=== PATIENT | male | born 1940 | race Caucasian/White ===

== ENCOUNTER → 2020-01-22 09:23 | Outpatient (BNVA) | payer MEDICARE, SELFPAY | PROVIDERS: PCP Internal Medicine Interventional Cardiology; Referring Provider Internal Medicine Interventional Cardiology; Visit Provider Internal Medicine Cardiovascular Disease | DX: I48.92 Unspecified atrial flutter (principal) | CPT/HCPCS: 99212 ==

== ENCOUNTER → 2021-01-31 10:10 | Outpatient (BNVA) | payer MEDICARE, SELFPAY | PROVIDERS: PCP Internal Medicine Interventional Cardiology; Visit Provider Internal Medicine Cardiovascular Disease | DX: I48.92 Unspecified atrial flutter (principal) | CPT/HCPCS: 93005; 99212 ==

== ENCOUNTER 2021-06-20 14:06 | Outpatient (REF) | payer MEDICARE, SELFPAY ==
[2021-06-20 14:43] LABS: COVID-19 Test Positive (Negative); IDNOW Serial# 16C4AD1C
== END 2021-06-20 14:07 | disposition home or self-care (01) ==
LOC: HO.LAB 14:06
PROVIDERS: Visit Provider Internal Medicine
DX: Z20.822 Contact with and (suspected) exposure to COVID-19 (principal)
CPT/HCPCS: 87635; C9803

== ENCOUNTER → 2022-01-30 09:07 | Outpatient (BNVA) | payer MEDICARE, SELFPAY | PROVIDERS: PCP Internal Medicine; Visit Provider Internal Medicine Cardiovascular Disease | DX: I48.92 Unspecified atrial flutter (principal); Z79.01 Long term (current) use of anticoagulants | CPT/HCPCS: 93005; 99212 ==

== ENCOUNTER 2022-03-28 13:30 | Emergency (ER) | payer OTHER, MEDICARE, SELFPAY ==
--- NOTE | ~2022-03-28 | XR_ITS ---
EXAMINATION: XR CHEST CLINICAL INFORMATION: Shortness of breath. COMPARISON: 11/25/2017 chest radiograph. TECHNIQUE: 2 views of the chest were obtained. FINDINGS: The lungs are clear. There are no pleural effusions. The heart and mediastinal structures are unremarkable. A pectus excavatum deformity is noted. XR/XR chest 2V IMPRESSION: No acute cardiopulmonary process.
--- NOTE | 2022-03-28 13:53 | ED_ITS ---
HPI - URI/Sore Throat General Chief Complaint: Upper Respiratory Symptoms Stated Complaint: cough chest discomfort ear pain Time Seen by Provider: 03/28/22 15:24 Related Data Home Medications Medication Instructions Recorded Confirmed coenzyme Q10 10 mg capsule (Co 10 mg PO DAILY 01/31/21 01/31/21 Q-10) mecobalamin (vitamin B12) 5,000 5,000 mcg PO DAILY 01/31/21 01/31/21 mcg lozenge Previous Rx's Medication Instructions Recorded apixaban 5 mg tablet (Eliquis) 5 mg PO BID 90 days #180 tabs 02/03/21 amoxicillin 875 mg-potassium 1 tab PO BID #14 tabs 03/28/22 clavulanate 125 mg tablet benzonatate 200 mg capsule 200 mg PO TID PRN cough #20 caps 03/28/22 Allergies Allergy/AdvReac Type Severity Reaction Status Date / Time Doxicillian Allergy Unknown unknown Uncoded 01/30/22 09:09 [facility] Past Medical History Surgical History History of adenoidectomy History of knee replacement History of tonsillectomy Hx of appendectomy Family History Family History Father No problems noted. Mother No problems noted. Social History Social History Alcohol intake: current Alcohol intake frequency: 0-2 drinks per day Patient Tobacco Use Status: Former Tobacco user Quit Date: 1971 Years Smoked: 10 +/- Advance Directives: No Physical Exam Vital Signs: Vital Signs: Last Vital Signs Temp 97.7 F 03/28/22 13:54 Pulse 74 03/28/22 13:54 Resp 18 03/28/22 13:54 BP 165/94 H 03/28/22 13:54 Pulse Ox 95 03/28/22 13:54 O2 Del Method 03/28/22 13:54 BMI result Body Mass Index 22.4 Course Course Course Narrative: This is an RME: Additional HPI, ROS, PE not included below will be deferred to primary provider. Patient is an 82-year-old male presenting to emergency department for evaluation of upper respiratory symptoms. Symptom onset 2 weeks ago. Productive cough, shortness of breath with exertion, chest discomfort associated with cough/ deep respiration, L ear pain and blocked sensation, also with diarrhea, decreased appetitie, states he is drinking 8 oz water hourly (as advised by daughter), thus urinary frequency. Denies fevers, chills, nausea, vomiting. Has tested for COVID at home, negative. [facility] and ad vised to come to ED for CXR. Plan: labs, viral testing, CXR Medical Decision Making Lab Data 03/28/22 14:26 03/28/22 14:26 Labs: Lab Results 03/28/22 03/28/22 03/28/22 Range/Units 14:21 14:26 14:26 WBC (4.8-10.8) X10*3/uL RBC (4.60-5.80) X10*6/uL Hgb (14.0-18.0) g/dl Hct (42.0-52.0) % MCV (80.0-98.0) fL MCH (27.0-33.0) pg MCHC (31.0-36.0) g/dl RDW (11.0-16.0) % Plt Count (160-400) X10*3/uL MPV (9.4-12.4) fL Immature Gran % (Auto) (0.0-0.4) % Neut % (Auto) (45-73) % Lymph % (Auto) (20-40) % [place] % (Auto) (2-11) % Eos % (Auto) (0-4) % Baso % (Auto) (0-2) % Lymph # (Auto) (1.2-4.9) X10*3/uL [place] # (Auto) (0.1-1.2) X10*3/uL Eos # (Auto) (0.0-0.4) X10*3/uL Baso # (Auto) (0.0-0.2) X10*3/uL Abs Immat Gran (auto) (0.00-0.03) X10*3/uL Absolute Neuts (auto) (2.0-8.3) x10*3/uL Absolute Nucleated RBC (0.0-0.012) X10*3/uL Nucleated RBC % (auto) (0.0-0.2) /100WBC Sodium (135-145) mmol/L Potassium (3.3-5.1) mmol/L Chloride (96-108) mmol/L Carbon Dioxide (22-29) mmol/L Anion Gap (12-20) BUN (9-16) mg/dL Creatinine (0.5-1.4) mg/dL Estim Creat Clear Calc Estimated GFR Random Glucose (60-115) mg/dL Calcium (8.4-10.2) mg/dL Total Bilirubin (0.0-1.0) mg/dL AST (5-37) U/L ALT (0-40) U/L Alkaline Phosphatase (39-117) U/L Troponin I High Sens (<3.5-35.0) ng/L Total Protein (6.5-8.0) g/dL Albumin (3.5-5.0) g/dL Lipase (8-78) U/L Urine Color Yellow Urine Appearance Cloudy Urine pH 6.5 (5.0-9.0) Ur Specific [place] <= 1.005 (1.005-1.025) Urine Protein Negative (Neg-Trace) mg/dL Urine Glucose (UA) Negative (Negative) mg/dL Urine Ketones Negative (Negative) mg/dL Urine Blood Trace H (Negative) Urine Nitrite Negative (Negative) Ur Leukocyte Esterase Large (3+) H (Negative) Urine RBC 0-2 (0-2) /HPF Urine WBC >50 H (0-5) /HPF Ur Squamous Epith Cells 0-2 (0-2) /HPF Urine Bacteria 1+ (None Seen) Hyaline Casts 0-2 (0-2) /LPF COVID-19 (DAGOBERTO) Negative (Negative) COVID-19 Clin Com See Note Influenza Type A (JOE) Negative (Negative) Influenza Type B (JOE) Negative (Negative) Influenza A & B Note See Note 03/28/22 03/28/22 03/28/22 Range/Units 14:26 14:26 14:26 WBC 10.5 (4.8-10.8) X10*3/uL RBC 4.42 L (4.60-5.80) X10*6/uL Hgb 15.2 (14.0-18.0) g/dl Hct 42.7 (42.0-52.0) % MCV 96.6 (80.0-98.0) fL MCH 34.4 H (27.0-33.0) pg MCHC 35.6 (31.0-36.0) g/dl RDW 12.8 (11.0-16.0) % Plt Count 294 (160-400) X10*3/uL MPV 8.7 L (9.4-12.4) fL Immature Gran % (Auto) 0.7 H (0.0-0.4) % Neut % (Auto) 82.3 H (45-73) % Lymph % (Auto) 8.4 L (20-40) % [place] % (Auto) 8.1 (2-11) % Eos % (Auto) 0.2 (0-4) % Baso % (Auto) 0.3 (0-2) % Lymph # (Auto) 0.9 L (1.2-4.9) X10*3/uL [place] # (Auto) 0.9 (0.1-1.2) X10*3/uL Eos # (Auto) 0.0 (0.0-0.4) X10*3/uL Baso # (Auto) 0.0 (0.0-0.2) X10*3/uL Abs Immat Gran (auto) 0.07 H (0.00-0.03) X10*3/uL Absolute Neuts (auto) 8.6 H (2.0-8.3) x10*3/uL Absolute Nucleated RBC 0.000 (0.0-0.012) X10*3/uL Nucleated RBC % (auto) 0.0 (0.0-0.2) /100WBC Sodium 135 (135-145) mmol/L Potassium 4.1 (3.3-5.1) mmol/L Chloride 101 (96-108) mmol/L Carbon Dioxide 24 (22-29) mmol/L Anion Gap 14 (12-20) BUN 6 L (9-16) mg/dL Creatinine 0.70 (0.5-1.4) mg/dL Estim Creat Clear Calc 85.6 Estimated GFR > 60 Random Glucose 109 (60-115) mg/dL Calcium 9.2 (8.4-10.2) mg/dL Total Bilirubin 1.2 H (0.0-1.0) mg/dL AST 29 (5-37) U/L ALT 25 (0-40) U/L Alkaline Phosphatase 77 (39-117) U/L Troponin I High Sens 4.9 (<3.5-35.0) ng/L Total Protein 6.5 (6.5-8.0) g/dL Albumin 4.2 (3.5-5.0) g/dL Lipase 18 (8-78) U/L Urine Color Urine Appearance Urine pH (5.0-9.0) Ur Specific [place] (1.005-1.025) Urine Protein (Neg-Trace) mg/dL Urine Glucose (UA) (Negative) mg/dL Urine Ketones (Negative) mg/dL Urine Blood (Negative) Urine Nitrite (Negative) Ur Leukocyte Esterase (Negative) Urine RBC (0-2) /HPF Urine WBC (0-5) /HPF Ur Squamous Epith Cells (0-2) /HPF Urine Bacteria (None Seen) Hyaline Casts (0-2) /LPF COVID-19 (DAGOBERTO) (Negative) COVID-19 Clin Com Influenza Type A (JOE) (Negative) Influenza Type B (JOE) (Negative) Influenza A & B Note Discharge Plan Discharge Clinical Impression: Acute UTI (urinary tract infection), URI (upper respiratory infection) Patient Disposition: Home, Self-Care Additional Instructions: Take Augmentin twice daily for the next 7 days. This will cover, sinus, as well as urine bacteria You may use Benzonatate as needed for cough Prescriptions: New amoxicillin-pot clavulanate 875-125 mg tablet 1 tab PO BID Qty: 14 0RF benzonatate 200 mg capsule 200 mg PO TID PRN (Reason: cough) Qty: 20 0RF No Action Eliquis 5 mg tablet 5 mg PO BID 90 Days Qty: 180 3RF coenzyme Q10 [Co Q-10] 10 mg capsule 10 mg PO DAILY mecobalamin (vitamin B12) 5,000 mcg lozenge 5,000 mcg PO DAILY Rx Instructions: allow to dissolve in mouth OR may chew lightly before swallowing Interventions: ED Discharge Assessment Last Done: 03/28/22 16:03 Discharge Date/Time: 03/28/22 16:03
[2022-03-28 13:54] VITALS: BP 165/94; PULSE 74; RESP 18; TEMP 36.5; O2SAT 95; BMI 22.4
--- NOTE | 2022-03-28 14:00 | ECG_ITS ---
Test Reason : chest pain Blood Pressure : / mmHG Vent. Rate : 065 BPM Atrial Rate : 065 BPM P-R Int : 206 ms QRS Dur : 098 ms QT Int : 392 ms P-R-T Axes : 000 -73 054 degrees QTc Int : 407 ms Poor data quality Normal sinus rhythm with sinus arrhythmia Incomplete right bundle branch block Left anterior fascicular block Nonspecific ST and T wave abnormality Abnormal ECG When compared with ECG of 29-NOV-2017 09:29, Sinus rhythm has replaced Atrial fibrillation Referred By: Bety Barrientos Electronically Signed By:DIXIE ANGELES MD
[2022-03-28 14:30] LABS: MANUAL DIFF FLAG NO
[2022-03-28 14:33] LABS: Appearance Urine Cloudy; Color Urine Yellow; Glucose Urine UA Negative (Negative); Leukocyte Esterase Urine Large (3+) (Negative); Nitrite Urine Negative (Negative); PH 6.5 (5.0-9.0); Specific Gravity - Urine <= 1.005 (1.005-1.025); UMIC TRIGGER UACC YES; Urine Blood Trace (Negative); Urine Ketones Negative (Negative); Urine Protein Negative (Neg-Trace)
[2022-03-28 14:38] LABS: Bacteria Urine 1+ (None Seen); Hyaline Casts Urine 0-2 /LPF (0-2); RBC Urine 0-2 /HPF (0-2); Squamous Epithelial Cell Urine 0-2 /HPF (0-2); UACC Culture Trigger YES; WBC Urine >50 /HPF (0-5)
[2022-03-28 14:39] LABS: Basophils Percent Auto 0.3 % (0-2); Eosinophils Percent Auto 0.2 % (0-4); Hematocrit 42.7 % (42.0-52.0); Hemoglobin 15.2 g/dl (14.0-18.0); Imm Gran Abs Auto 0.07 X10*3/uL (0.00-0.03); Imm Gran Pct Auto 0.7 % (0.0-0.4); Lymphocytes Absolute Auto 0.9 X10*3/uL (1.2-4.9); Lymphocytes Percent Auto 8.4 % (20-40); Mean Corpuscular HGB Conc 35.6 g/dl (31.0-36.0); Mean Corpuscular Hemoglobin 34.4 pg (27.0-33.0); Mean Corpuscular Volume 96.6 fL (80.0-98.0); Mean Platelet Volume 8.7 fL (9.4-12.4); Monocytes Absolute Auto 0.9 X10*3/uL (0.1-1.2); Monocytes Percent Auto 8.1 % (2-11); Neutrophils Absolute Auto 8.6 x10*3/uL (2.0-8.3); Neutrophils Percent Auto 82.3 % (45-73); Platelet Count 294 X10*3/uL (160-400); Red Blood Count 4.42 X10*6/uL (4.60-5.80); Red Cell Distribution Width 12.8 % (11.0-16.0); White Blood Count 10.5 X10*3/uL (4.8-10.8)
[2022-03-28 14:46] LABS: COVID-19 Test Negative (Negative); IDNOW Serial# 16C4AD1C
[2022-03-28 14:47] LABS: Alanine Aminotransferase 25 U/L (0-40); Albumin Level 4.2 g/dL (3.5-5.0); Alkaline Phosphatase 77 U/L (39-117); Anion Gap 14 (12-20); Aspartate Amino Transferase 29 U/L (5-37); Bilirubin Total 1.2 mg/dL (0.0-1.0); Blood Urea Nitrogen 6 mg/dL (9-16); Calcium 9.2 mg/dL (8.4-10.2); Carbon Dioxide 24 mmol/L (22-29); Chloride 101 mmol/L (96-108); Creatinine Clr Calc Pharmacy 85.6; Estimated Glomerular Filt Rate > 60; Glucose Random 109 mg/dL (60-115); Lipase 18 U/L (8-78); Potassium 4.1 mmol/L (3.3-5.1); Sodium 135 mmol/L (135-145); Total Protein 6.5 g/dL (6.5-8.0)
[2022-03-28 14:54] LABS: IDNOW Serial# BCCEAD1C; Influenza A Negative (Negative); Influenza B2 Negative (Negative)
[2022-03-28 14:55] LABS: Troponin-I High Sensitivity 4.9 ng/L (<3.5-35.0)
--- NOTE | 2022-03-28 15:43 | ED.GENADULT ---
HPI - General Adult General Chief complaint: Upper Respiratory Symptoms Stated complaint: cough chest discomfort ear pain Time Seen by Provider: 03/28/22 15:24 Source: patient, RN notes reviewed and old records reviewed Mode of arrival: ambulatory Limitations: no limitations History of Present Illness HPI narrative: 82-year-old male with past medical history significant for atrial flutter presents for evaluation of cough. Patient reports a dry cough for the last 2 weeks. He reports he feels a tickle in the back of his throat prompting him to cough. He states that he is keeping him up at night The patient reports mild, 3-10 pain to both sides of his chest with coughing. Denies any chest pain at rest or with exertion He reports some mild left ear discomfort that started 2 days ago. He also endorses urinary frequency and occasional burning with urination Patient reports using Albuterol, Fluticasone, sudafed, and dextromethorphan without improvement Related Data Home Medications Medication Instructions Recorded Confirmed coenzyme Q10 10 mg capsule (Co 10 mg PO DAILY 01/31/21 01/31/21 Q-10) mecobalamin (vitamin B12) 5,000 5,000 mcg PO DAILY 01/31/21 01/31/21 mcg lozenge Previous Rx's Medication Instructions Recorded apixaban 5 mg tablet (Eliquis) 5 mg PO BID 90 days #180 tabs 02/03/21 amoxicillin 875 mg-potassium 1 tab PO BID #14 tabs 03/28/22 clavulanate 125 mg tablet benzonatate 200 mg capsule 200 mg PO TID PRN cough #20 caps 03/28/22 Allergies Allergy/AdvReac Type Severity Reaction Status Date / Time Doxicillian Allergy Unknown unknown Uncoded 01/30/22 09:09 Review of Systems Constitutional: Constitutional: Reports as per HPI, Denies chills, Denies fatigue and Denies fever(s) Cardiovascular: Cardiovascular: Denies chest pain, Denies chest pain at rest, Denies chest pain with activity and Denies dyspnea Respiratory: Respiratory: Reports chest congestion, Reports cough, Denies hemoptysis, Reports pain with cough, Denies dyspnea and Denies wheezing Gastrointestinal: Gastrointestinal: Denies abdominal pain, Denies constipation and Denies vomiting Genitourinary: Genitourinary: Reports dysuria and Reports urinary frequency Endocrine: Endocrine: Denies fatigue Allergic/Immunologic: Allergic/Immunologic: Denies wheezing PMFSH Past Medical History Surgical History History of adenoidectomy History of knee replacement History of tonsillectomy Hx of appendectomy Family History Family History Father No problems noted. Mother No problems noted. Social History Social History Alcohol intake: current Alcohol intake frequency: 0-2 drinks per day Patient Tobacco Use Status: Former Tobacco user Quit Date: 1971 Smoked: 10 +/- Advance Directives: No Physical Exam ED Vital Signs: Vital Signs - 24 hr 03/28/22 13:54 Temperature 97.7 F Pulse Rate 74 Respiratory Rate 18 Blood Pressure 165/94 H Pulse Oximetry 95 Oxygen Delivery Method Room Air BMI result Body Mass Index 22.4 Const General: healthy appearing, comfortable, no acute distress, alert and awake Nutritional Appearance: well nourished Orientation/consciousness: patient oriented x3 HENMT Ears: external ears abnormal (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) and TM's normal bilaterally Face and sinus: Yes sinus tenderness Mouth: Normal oral and palatal mucosa present and oropharynx normal Throat: Yes posterior oropharynx normal Eyes Eyelids: Yes eyelids normal Conjunctivae: conjunctivae normal Sclerae: sclerae normal Corneas: corneas normal Pupils: Equal, round and reactive pupils present EOM: EOMs intact bilaterally Resp Effort & Inspection: normal respiratory effort, able to speak in complete sentences, no audible wheezes and not labored Auscultation: clear to auscultation bilaterally Skin General skin exam: no rashes or lesions noted and elasticity normal Lesions: no lesions Rashes: no rashes Neuro General: patient oriented x3 Cranial nerves: Yes Equal, round and reactive pupils present Extrem General: Yes full ROM Medical Decision Making Medical Decision Making MDM Narrative: Patient presented to the postnasal drip, cough, developed left ear pain. His chest x-ray clear, and a negative viral. No evidence of pneumonia. The patient noted symptoms, vital signs are stable. Clinically has a respiratory infection and possibly developing sinusitis as his sinus tenderness. No the patient is noting left ear pain but his tympanic membranes are clear without evidence of otitis media or otitis externa. He also has burning with urination urinary frequency. He could be developing UTI. Will treat the patient with Augmentin which should cover any sinus issues as well as urine donato. Labs are reviewed and reassuring Differential Diagnosis Differential Diagnoses: The differential diagnosis associated with the presentation includes (URI, bronchitis, Pneumonia, Sinusitis, UTI) URI, UTI Lab Data MDM Lab Attestation statement: I reviewed the patient's lab results. 03/28/22 14:26 03/28/22 14:26 Labs: Lab Results 03/28/22 03/28/22 03/28/22 Range/Units 14:21 14:26 14:26 WBC (4.8-10.8) X10*3/uL RBC (4.60-5.80) X10*6/uL Hgb (14.0-18.0) g/dl Hct (42.0-52.0) % MCV (80.0-98.0) fL MCH (27.0-33.0) pg MCHC (31.0-36.0) g/dl RDW (11.0-16.0) % Plt Count (160-400) X10*3/uL MPV (9.4-12.4) fL Immature Gran % (Auto) (0.0-0.4) % Neut % (Auto) (45-73) % Lymph % (Auto) (20-40) % [place] % (Auto) (2-11) % Eos % (Auto) (0-4) % Baso % (Auto) (0-2) % Lymph # (Auto) (1.2-4.9) X10*3/uL [place] # (Auto) (0.1-1.2) X10*3/uL Eos # (Auto) (0.0-0.4) X10*3/uL Baso # (Auto) (0.0-0.2) X10*3/uL Abs Immat Gran (auto) (0.00-0.03) X10*3/uL Absolute Neuts (auto) (2.0-8.3) x10*3/uL Absolute Nucleated RBC (0.0-0.012) X10*3/uL Nucleated RBC % (auto) (0.0-0.2) /100WBC Sodium (135-145) mmol/L Potassium (3.3-5.1) mmol/L Chloride (96-108) mmol/L Carbon Dioxide (22-29) mmol/L Anion Gap (12-20) BUN (9-16) mg/dL Creatinine (0.5-1.4) mg/dL Estim Creat Clear Calc Estimated GFR Random Glucose (60-115) mg/dL Calcium (8.4-10.2) mg/dL Total Bilirubin (0.0-1.0) mg/dL AST (5-37) U/L ALT (0-40) U/L Alkaline Phosphatase (39-117) U/L Troponin I High Sens (<3.5-35.0) ng/L Total Protein (6.5-8.0) g/dL Albumin (3.5-5.0) g/dL Lipase (8-78) U/L Urine Color Yellow Urine Appearance Cloudy Urine pH 6.5 (5.0-9.0) Ur Specific [place] <= 1.005 (1.005-1.025) Urine Protein Negative (Neg-Trace) mg/dL Urine Glucose (UA) Negative (Negative) mg/dL Urine Ketones Negative (Negative) mg/dL Urine Blood Trace H (Negative) Urine Nitrite Negative (Negative) Ur Leukocyte Esterase Large (3+) H (Negative) Urine RBC 0-2 (0-2) /HPF Urine WBC >50 H (0-5) /HPF Ur Squamous Epith Cells 0-2 (0-2) /HPF Urine Bacteria 1+ (None Seen) Hyaline Casts 0-2 (0-2) /LPF COVID-19 ([facility]AGOBERTO) Negative (Negative) COVID-19 Clin Com See Note Influenza Type A (JOE) Negative (Negative) Influenza Type B (JOE) Negative (Negative) Influenza A & B Note See Note 03/28/22 03/28/22 03/28/22 Range/Units 14:26 14:26 14:26 WBC 10.5 (4.8-10.8) X10*3/uL RBC 4.42 L (4.60-5.80) X10*6/uL Hgb 15.2 (14.0-18.0) g/dl Hct 42.7 (42.0-52.0) % MCV 96.6 (80.0-98.0) fL MCH 34.4 H (27.0-33.0) pg MCHC 35.6 (31.0-36.0) g/dl RDW 12.8 (11.0-16.0) % Plt Count 294 (160-400) X10*3/uL MPV 8.7 L (9.4-12.4) fL Immature Gran % (Auto) 0.7 H (0.0-0.4) % Neut % (Auto) 82.3 H (45-73) % Lymph % (Auto) 8.4 L (20-40) % [place] % (Auto) 8.1 (2-11) % Eos % (Auto) 0.2 (0-4) % Baso % (Auto) 0.3 (0-2) % Lymph # (Auto) 0.9 L (1.2-4.9) X10*3/uL [place] # (Auto) 0.9 (0.1-1.2) X10*3/uL Eos # (Auto) 0.0 (0.0-0.4) X10*3/uL Baso # (Auto) 0.0 (0.0-0.2) X10*3/uL Abs Immat Gran (auto) 0.07 H (0.00-0.03) X10*3/uL Absolute Neuts (auto) 8.6 H (2.0-8.3) x10*3/uL Absolute Nucleated RBC 0.000 (0.0-0.012) X10*3/uL Nucleated RBC % (auto) 0.0 (0.0-0.2) /100WBC Sodium 135 (135-145) mmol/L Potassium 4.1 (3.3-5.1) mmol/L Chloride 101 (96-108) mmol/L Carbon Dioxide 24 (22-29) mmol/L Anion Gap 14 (12-20) BUN 6 L (9-16) mg/dL Creatinine 0.70 (0.5-1.4) mg/dL Estim Creat Clear Calc 85.6 Estimated GFR > 60 Random Glucose 109 (60-115) mg/dL Calcium 9.2 (8.4-10.2) mg/dL Total Bilirubin 1.2 H (0.0-1.0) mg/dL AST 29 (5-37) U/L ALT 25 (0-40) U/L Alkaline Phosphatase 77 (39-117) U/L Troponin I High Sens 4.9 (<3.5-35.0) ng/L Total Protein 6.5 (6.5-8.0) g/dL Albumin 4.2 (3.5-5.0) g/dL Lipase 18 (8-78) U/L Urine Color Urine Appearance Urine pH (5.0-9.0) Ur Specific [place] (1.005-1.025) Urine Protein (Neg-Trace) mg/dL Urine Glucose (UA) (Negative) mg/dL Urine Ketones (Negative) mg/dL Urine Blood (Negative) Urine Nitrite (Negative) Ur Leukocyte Esterase (Negative) Urine RBC (0-2) /HPF Urine WBC (0-5) /HPF Ur Squamous Epith Cells (0-2) /HPF Urine Bacteria (None Seen) Hyaline Casts (0-2) /LPF COVID-19 (DAGOBERTO) (Negative) COVID-19 Clin Com Influenza Type A (JOE) (Negative) Influenza Type B (JOE) (Negative) Influenza A & B Note Independent Interpretation I performed an independent interpretation of an: EKG and Plain X-Ray Interpretation: and agree with reads Prescription Management I considered prescription management with: Antibiotic and Other (antitussive) Discharge Plan Discharge Clinical Impression: Acute UTI (urinary tract infection), URI (upper respiratory infection) Patient Disposition: Home, Self-Care Additional Instructions: Take Augmentin twice daily for the next 7 days. This will cover, sinus, as well as urine bacteria You may use Benzonatate as needed for cough Prescriptions: New amoxicillin-pot clavulanate 875-125 mg tablet 1 tab PO BID Qty: 14 0RF benzonatate 200 mg capsule 200 mg PO TID PRN (Reason: cough) Qty: 20 0RF No Action Eliquis 5 mg tablet 5 mg PO BID 90 Days Qty: 180 3RF coenzyme Q10 [Co Q-10] 10 mg capsule 10 mg PO DAILY mecobalamin (vitamin B12) 5,000 mcg lozenge 5,000 mcg PO DAILY Rx Instructions: allow to dissolve in mouth OR may chew lightly before swallowing Discharge Date/Time: 03/28/22 16:03
== END 2022-03-28 16:03 | disposition home or self-care (01) ==
PROVIDERS: Nurse Practitioner Family; Emergency Provider Emergency Medicine; PCP Internal Medicine
DX: N39.0 Urinary tract infection, site not specified (principal); J06.9 Acute upper respiratory infection, unspecified; R05.9 Cough, unspecified; R07.89 Other chest pain; H92.03 Otalgia, bilateral; Z20.828 Contact with and (suspected) exposure to other viral communicable diseases; Z20.822 Contact with and (suspected) exposure to COVID-19; Z79.899 Other long term (current) drug therapy
CPT/HCPCS: 36415; 71046; 80053; 81001; 83690; 84484; 85025; 87086; 87502; 87635; 93005; 99283

== ENCOUNTER 2022-03-30 10:54 | Emergency (ER) | payer OTHER, MEDICARE, SELFPAY ==
[2022-03-30 11:13] VITALS: BP 132/82; PULSE 62; RESP 17; TEMP 36; O2SAT 96; BMI 22.4
--- NOTE | 2022-03-30 11:15 | ED_ITS ---
HPI - General Adult General Chief complaint: Upper Respiratory Symptoms <EL Drummond - Last Filed: 03/30/22 11:17> Stated complaint: cough <EL Drummond - Last Filed: 03/30/22 11:17> Time Seen by Provider: 03/30/22 13:08 <EL Drummond - Last Filed: 03/30/22 11:17> Source: patient <EL Sherwood - Last Filed: 03/30/22 19:10> Mode of arrival: ambulatory <EL Sherwood - Last Filed: 03/30/22 19:10> History of Present Illness HPI narrative: 82-year-old male with a past medical history of a flutter on Eliquis, presenting to the ED complaining of persistent cough x2 weeks. Reports chest discomfort associated with coughing, and mild SOB. Patient reports intermittent sputum production. Patient was seen and treated in our ED on 03/28 for similar symptoms, had labs and x-ray which were unremarkable, discharged on Augmentin and Tessalon Perles without relief. Denies known fever, chills, travel, sick contacts, pedal edema <EL Sherwood - Last Filed: 03/30/22 19:10> Onset (ago): week(s) <EL Sherwood - Last Filed: 03/30/22 19:10> Related Data Home medications: Home Medications Medication Instructions Recorded Confirmed coenzyme Q10 10 mg capsule (Co 10 mg PO DAILY 01/31/21 01/31/21 Q-10) mecobalamin (vitamin B12) 5,000 5,000 mcg PO DAILY 01/31/21 01/31/21 mcg lozenge Previous Rx's Medication Instructions Recorded apixaban 5 mg tablet (Eliquis) 5 mg PO BID 90 days #180 tabs 02/03/21 amoxicillin 875 mg-potassium 1 tab PO BID #14 tabs 03/28/22 clavulanate 125 mg tablet benzonatate 200 mg capsule 200 mg PO TID PRN cough #20 caps 03/28/22 hydrocodone-homatropine 5 mg-1.5 5 ml PO Q4-6H PRN cough 5 days 03/30/22 mg/5 mL (5 mL) oral syrup (Hycodan) #100 mL prednisone 20 mg tablet 40 mg PO DAILY 5 days #10 tabs 03/30/22 <EL Drummond - Last Filed: 03/30/22 11:17> Allergies/adverse reactions: Allergies Allergy/AdvReac Type Severity Reaction Status Date / Time Doxicillian Allergy Unknown unknown Uncoded 01/30/22 09:09 <EL Drummond - Last Filed: 03/30/22 11:17> Review of Systems Review of Systems: Constitutional: No Fever, No Chills, No Fatigue, No Malaise ENT/Mouth: No Ear Pain, No Nasal Congestion, No Sinus Pain, No sore throat, No Rhinorrhea, No Swallowing Difficulty Eyes: No Eye Pain, No Swelling, No Redness,No Vision Changes Cardiovascular: + Chest Pain w/cough, + SOB mild, No Dyspnea on Exertion, No Orthopnea, No Edema, No Palpitations Respiratory: + Cough, + Sputum, No Wheezing, No Smoke Exposure, No Dyspnea Gastrointestinal: No Nausea, No Vomiting, No Diarrhea, No Constipation, No Abdominal pain Musculoskeletal: No joint pain, No Myalgias, No Joint Swelling Skin: No Skin Lesions, No rash Neuro: No Weakness, No Numbness, No Paresthesias, No Headache <EL Sherwood Last Filed: 03/30/22 19:10> Yes all other systems are reviewed and are negative <EL Sherwood - Last Filed: 03/30/22 19:10> Constitutional: Constitutional: Reports as per HPI <EL Sherwood Last Filed: 03/30/22 19:10> [facility] Past Medical History Attestation statement: The following information was validated with the patient. <EL Sherwood Last Filed: 03/30/22 19:10> Surgical History: Surgical History History of adenoidectomy History of knee replacement History of tonsillectomy Hx of appendectomy <EL Drummond Last Filed: 03/30/22 11:17> Family History Family History: Family History Father No problems noted. Mother No problems noted. <EL Drummond - Last Filed: 03/30/22 11:17> Social History Social History: Social History Alcohol intake: current Alcohol intake frequency: 0-2 drinks per day Patient Tobacco Use Status: Former Tobacco user Quit Date: 1971 Smoked: 10 +/- Advance Directives: No <EL Drummond - Last Filed: 03/30/22 11:17> Physical Exam ED Vital Signs: Vital Signs - 24 hr 03/30/22 11:13 Temperature 96.8 F Pulse Rate 62 Respiratory Rate 17 Blood Pressure 132/82 Pulse Oximetry 96 Oxygen Delivery Method Room Air BMI result Body Mass Index 22.4 <EL Drummond - Last Filed: 03/30/22 11:17> Vital Signs - 24 hr 03/30/22 11:13 Temperature 96.8 F Pulse Rate 62 Respiratory Rate 17 Blood Pressure 132/82 Pulse Oximetry 96 Oxygen Delivery Method Room Air BMI result Body Mass Index 22.4 <EL Sherwood - Last Filed: 03/30/22 19:10> Vital Signs - 24 hr 03/30/22 11:13 Temperature 96.8 F Pulse Rate 62 Respiratory Rate 17 Blood Pressure 132/82 Pulse Oximetry 96 Oxygen Delivery Method Room Air BMI result Body Mass Index 22.4 <Farhat Pop MD - Last Filed: 04/01/22 03:12> Const General: cooperative, healthy appearing and no acute distress <EL Sherwood - Last Filed: 03/30/22 19:10> Orientation/consciousness: patient oriented x3 <EL Sherwood - Last Filed: 03/30/22 19:10> Limitations: no limitations <EL Sherwood - Last Filed: 03/30/22 19:10> HENMT Head: Yes normal to inspection and Yes atraumatic <EL Sherwood - Last Filed: 03/30/22 19:10> Ears: hearing grossly normal bilaterally <EL Sherwood - Last Filed: 03/30/22 19:10> General nose exam: Normal external nose present <EL Sherwood - Last Filed: 03/30/22 19:10> Face and sinus: Yes normal facial exam <EL Sherwood - Last Filed: 03/30/22 19:10> Eyes General: appearance normal, both eyes and all related structures <EL Sherwood - Last Filed: 03/30/22 19:10> EOM: EOMs intact bilaterally <Lurdes Rodriguez [place] - Last Filed: 03/30/22 19:10> Neck Neck: Yes normal visual inspection and Yes no meningeal signs <Lurdes Rodriguez [place] - Last Filed: 03/30/22 19:10> Resp Effort & Inspection: normal respiratory effort and no respiratory distress <EL Sherwood - Last Filed: 03/30/22 19:10> Auscultation: clear to auscultation bilaterally, no crackles, no rales, no rhonchi and no wheezes <Lurdes Rodriguez [place] - Last Filed: 03/30/22 19:10> Cardio Rate: regular rate <Lurdes Rodriguez [place] - Last Filed: 03/30/22 19:10> Heart sounds: S1 normal heart sound present and S2 normal heart sound present <Lurdes Rodriguez [place] - Last Filed: 03/30/22 19:10> GI Inspection: Yes normal to inspection <EL Sherwood - Last Filed: 03/30/22 19:10> Palpation (GI): Soft to palpation, nontender, no guarding and not rigid <Lurdes Rodriguez [place] - Last Filed: 03/30/22 19:10> Skin Rashes: no rashes <Lurdes Rodriguez [place] - Last Filed: 03/30/22 19:10> Wounds: no wounds <EL Sherwood - Last Filed: 03/30/22 19:10> Neuro General: patient oriented x3, tone normal and no meningeal signs <EL Sherwood - Last Filed: 03/30/22 19:10> Gait exam (Neuro): Normal gait present <EL Sherwood - Last Filed: 03/30/22 19:10> Extrem General: Yes normal to inspection, Yes no pedal edema and Yes no calf tenderness <EL Sherwood - Last Filed: 03/30/22 19:10> Course Course Course Narrative: This is an RME: Additional HPI, ROS, PE not included below will be deferred to primary provider. 82-year-old male presents with intermittent dry cough which he describes as a tickle in his throat for the past 2 weeks. Patient denies fevers, chills. with similar sx. Patient on Eliquis. Physical examination benign. Plan viral test and CXR <EL Drummond - Last Filed: 03/30/22 11:17> This is an RME: Additional HPI, ROS, PE not included below will be deferred to primary provider. 82-year-old male presents with intermittent dry cough which he describes as a tickle in his throat for the past 2 weeks. Patient denies fevers, chills. with similar sx. Patient on Eliquis. Physical examination benign. Plan viral test and CXR - COVID-19 and influenza negative - patient likely with bronchitis. Will give Hycodan prescription and prednisone, encourage continuation of previously prescribed Augmentin and close PCP follow-up Results discussed with patient including worrisome signs and symptoms and strict return precautions, and when to return to the emergency department. They verbalized understanding and feel safe for discharge at this time. <EL Sherwood - Last Filed: 03/30/22 19:10> Medications Administered Discontinued Medications Generic Name Dose Route Start Last Admin Trade Name Freq PRN Reason Stop Dose Admin Hydrocodone Bit/Homatropine Methylb 5 ml 03/30/22 13:28 03/30/22 13:56 Hydrocodone/Homat 5/1.5/5 Ml 5 Ml Syrup PO 03/30/22 13:29 5 ml ONCE ONE Administration Prednisone 40 mg 03/30/22 13:44 03/30/22 13:56 Prednisone 20 Mg Tablet PO 03/30/22 13:45 40 mg ONCE ONE Administration <EL Drummond - Last Filed: 03/30/22 11:17> Medications Administered Discontinued Medications Generic Name Dose Route Start Last Admin Trade Name Freq PRN Reason Stop Dose Admin Hydrocodone Bit/Homatropine Methylb 5 ml 03/30/22 13:28 03/30/22 13:56 Hydrocodone/Homat 5/1.5/5 Ml 5 Ml Syrup PO 03/30/22 13:29 5 ml ONCE ONE Administration Prednisone 40 mg 03/30/22 13:44 03/30/22 13:56 Prednisone 20 Mg Tablet PO 03/30/22 13:45 40 mg ONCE ONE Administration <EL Sherwood - Last Filed: 03/30/22 19:10> Medications Administered Discontinued Medications Generic Name Dose Route Start Last Admin Trade Name [place] PRN Reason Stop Dose Admin Hydrocodone Bit/Homatropine Methylb 5 ml 03/30/22 13:28 03/30/22 13:56 Hydrocodone/Homat 5/1.5/5 Ml 5 Ml Syrup PO 03/30/22 13:29 5 ml ONCE ONE Administration Prednisone 40 mg 03/30/22 13:44 03/30/22 13:56 Prednisone 20 Mg Tablet PO 03/30/22 13:45 40 mg ONCE ONE Administration <Farhat Pop MD - Last Filed: 04/01/22 03:12> Medical Decision Making Medical Decision Making MDM Narrative: 82-year-old male with a past medical history of a flutter on Eliquis, presenting to the ED complaining of persistent cough x2 weeks. on exam vital signs stable, NAD, nontoxic appearing, lungs CTA, abdomen soft/nontender, no pedal edema /calf tenderness. Concern for viral illness vs bronchitis. Lower suspicion for pneumonia with negative x-ray 2 days ago. Symptoms atypical for ACS/PE or CHF Labs reviewed from prior visit and unremarkable. Repeat x-ray ordered in triage however patient refused as had 1 2 days ago. Will obtain COVID-19/influenza testing, give p.o. Hycodan and prednisone <EL Sherwood - Last Filed: 03/30/22 19:10> Differential Diagnosis Differential Diagnoses: The differential diagnosis associated with the presentation includes <EL Sherwood - Last Filed: 03/30/22 19:10> As above <EL Sherwood - Last Filed: 03/30/22 19:10> Admission/Observation Consideration of admission/observation: Escalation of care including admission/observation considered <EL Sherwood - Last Filed: 03/30/22 19:10> Lab Data MDM Lab Attestation statement: I reviewed the patient's lab results. <EL Sherwood - Last Filed: 03/30/22 19:10> Labs: Lab Results 03/30/22 03/30/22 Range/Units 11:24 11:24 COVID-19 (DAGOBERTO) Negative (Negative) COVID-19 Clin Com See Note Influenza Type A (JOE) Negative (Negative) Influenza Type B (JOE) Negative (Negative) Influenza A & B Note See Note <EL Drummond - Last Filed: 03/30/22 11:17> Lab Results 03/30/22 03/30/22 Range/Units 11:24 11:24 COVID-19 (DAGOBERTO) Negative (Negative) COVID-19 Clin Com See Note Influenza Type A (JOE) Negative (Negative) Influenza Type B (JOE) Negative (Negative) Influenza A & B Note See Note <EL Sherwood - Last Filed: 03/30/22 19:10> Lab Results 03/30/22 03/30/22 Range/Units 11:24 11:24 COVID-19 (DAGOBERTO) Negative (Negative) COVID-19 Clin Com See Note Influenza Type A (JOE) Negative (Negative) Influenza Type B (JOE) Negative (Negative) Influenza A & B Note See Note <Farhat Pop MD - Last Filed: 04/01/22 03:12> External Record Review prior ED record <EL Sherwood - Last Filed: 03/30/22 19:10> Prescription Management I considered prescription management with: Antiviral and Antibiotic <EL Sherwood - Last Filed: 03/30/22 19:10> Attestation Attending Attestation: I reviewed CAR HOPPER/PA/Resident note, assessment and plan. I agree with the documentation, assessment and plan unless otherwise stated. <Farhat Pop MD - Last Filed: 04/01/22 03:12> Discharge Plan Discharge Clinical Impression: Bronchitis <EL Drummond - Last Filed: 03/30/22 11:17> Patient Disposition: Home, Self-Care <EL Drummond - Last Filed: 03/30/22 11:17> Instructions: Acute Bronchitis (ED) <EL Drummond - Last Filed: 03/30/22 11:17> Additional Instructions: you tested negative for COVID-19 and the flu your labs and x-ray were unremarkable 2 days ago. You likely have bronchitis. Continue taking previously prescribed antibiotic and coughing pills. In addition Hycodan is a coughing medicine with codeine, take as needed for severe cough. Prednisone as a steroid Please of close follow-up with her doctor. If symptoms persist or worsen return to the emergency department <EL Drummond - Last Filed: 03/30/22 11:17> Prescriptions: New prednisone 20 mg tablet 40 mg PO DAILY 5 Days Qty: 10 0RF hydrocodone-homatropine [Hycodan] 5-1.5 mg/5 mL (5 mL) syrup 5 ml PO Q4-6H PRN (Reason: cough) 5 Days Qty: 100 0RF Rx Instructions: Partial Fill upon patient request. No Action Eliquis 5 mg tablet 5 mg PO BID 90 Days Qty: 180 3RF amoxicillin-pot clavulanate 875-125 mg tablet 1 tab PO BID Qty: 14 0RF benzonatate 200 mg capsule 200 mg PO TID PRN (Reason: cough) Qty: 20 0RF coenzyme Q10 [Co Q-10] 10 mg capsule 10 mg PO DAILY mecobalamin (vitamin B12) 5,000 mcg lozenge 5,000 mcg PO DAILY Rx Instructions: allow to dissolve in mouth OR may chew lightly before swallowing <EL Drummond - Last Filed: 03/30/22 11:17> Referrals: Erwin Cotton MD [Primary Care Provider] - 3 days <EL Drummond - Last Filed: 03/30/22 11:17> Interventions: ED Discharge Assessment Last Done: 03/30/22 14:12 <EL Drummond - Last Filed: 03/30/22 11:17> Discharge Date/Time: 03/30/22 14:14 <EL Drummond - Last Filed: 03/30/22 11:17>
[2022-03-30 11:50] LABS: COVID-19 Test Negative (Negative); IDNOW Serial# 16C4AD1C; IDNOW Serial# BCCEAD1C; Influenza A Negative (Negative); Influenza B2 Negative (Negative)
[2022-03-30] MEDS: predniSONE 20 MG TABLET 40 MG PO (13:56)
[2022-03-30] MEDS: HYDROcodone/Homat 5/1.5/5 ML 5 ML SYRUP PO (13:56)
== END 2022-03-30 14:14 | disposition home or self-care (01) ==
PROVIDERS: Physician Assistant; Emergency Provider Emergency Medicine; PCP Internal Medicine
DX: J40 Bronchitis, not specified as acute or chronic (principal); Z20.822 Contact with and (suspected) exposure to COVID-19; Z87.891 Personal history of nicotine dependence
CPT/HCPCS: 87502; 87635; 99283

== ENCOUNTER 2023-01-22 09:03 | Outpatient (AMB) | payer OTHER, MEDICARE, SELFPAY ==
[2023-01-22 09:06] VITALS: BP 120/70; PULSE 94; BMI 22.9
--- NOTE | 2023-01-22 09:06 | A.OFFVIS_ITS ---
Intake Vital Signs 01/22/23 09:06 Height 6 ft 1 in Weight 173 lb 11.588 oz BMI 22.9 BP 120/70 Blood Pressure Location Lt brachial Position Sitting Pulse 94 Pulse Source Pulse Oximeter Intake Visit Reasons: 1 yr f/u Intake Note: 1 yr f/u patient its fine Print Washer Required: No Accompanied by: Self / Same As Patient Allergies Doxicillian Allergy (Unknown, Uncoded 01/30/22 09:09) unknown Medication List - Last Reconciled 01/22/23 by Jameel Burdick MD apixaban (Eliquis) 5 mg PO BID 90 days mecobalamin (vitamin B12) 5,000 mcg PO DAILY HPI HPI Comments History of Present Illness Details pleasant 82-year-old gentleman here for follow-up. He is known to have atrial flutter in the past. He has been asymptomatic. Normal ejection fraction on echocardiography. No heart failure symptoms. He has been on Eliquis without any problems. He returns and has been doing well. No new symptoms. No bleeding issues. 01/22/2023: He returns for follow-up. Sera sauceda has been active and has no symptoms. Continues to take Eliquis without any bleeding issues. Blood pressure control is good. [facility] Surgical History History of knee replacement Hx of appendectomy History of adenoidectomy History of tonsillectomy Family History Father No problems noted. Mother No problems noted. Social History Alcohol intake: current Alcohol intake frequency: 0-2 drinks per day Patient Tobacco Use Status: Former Tobacco user Quit Date: 1971 Years Smoked: 10 +/- Physical Exam Vital Signs: Last Vital Signs Pulse 94 01/22/23 09:06 BP 120/70 01/22/23 09:06 BMI result Body Mass Index 22.9 GENERAL APPEARANCE: in no acute distress, well developed, well nourished. NECK/THYROID: no carotid bruit, no jugular venous distention. SKIN: no suspicious lesions, warm and dry. HEART: no murmurs, regular rhythm, S1, S2 normal. LUNGS: clear to auscultation bilaterally. ABDOMEN: normal, bowel sounds present, soft, nontender, nondistended. EXTREMITIES: no clubbing, cyanosis, or edema. Bruising right ankle. PERIPHERAL PULSES: equal. NEUROLOGIC: nonfocal, alert and oriented. PSYCH: mood/affect full range. Assessment & Plan Assessment & Plan (1) Atrial flutter: Code(s): I48.92 - Unspecified atrial flutter Plan: Pleasant 82 year gentleman with atrial flutter. He has been on Eliquis for stroke prevention. He has been doing well. He is physically active and has no exertional symptoms. Continue Eliquis as before. Clinically stable and will see us in 1 year. Thank you for allowing me to participate in the care of your patient. Please feel free to contact me if you have any questions. Coding Level of Care Code Est Pt Level 3 (70122) Diagnoses Atrial flutter I48.92
== END 2023-01-22 09:26 | disposition home or self-care (01) ==
PROVIDERS: PCP Internal Medicine; Visit Provider Internal Medicine Cardiovascular Disease
DX: I48.92 Unspecified atrial flutter (principal)
CPT/HCPCS: 99213

== ENCOUNTER → 2023-01-22 09:03 | Outpatient (BNVA) | payer OTHER, MEDICARE, SELFPAY | PROVIDERS: Visit Provider Internal Medicine Cardiovascular Disease | DX: I48.92 Unspecified atrial flutter (principal); Z79.01 Long term (current) use of anticoagulants | CPT/HCPCS: 99212 ==

== ENCOUNTER 2023-05-17 16:55 | Emergency (ER) | payer MEDICARE, SELFPAY ==
[2023-05-17 17:05] VITALS: BP 166/104; PULSE 84; RESP 16; TEMP 36.8; O2SAT 96; BMI 23.7
--- NOTE | 2023-05-17 17:07 | ED_ITS ---
HPI - General Adult General Chief complaint: Fall Stated complaint: believes he was poisoned, would like a urine test Time Seen by Provider: 05/18/23 02:03 Source: patient Mode of arrival: ambulatory Limitations: no limitations History of Present Illness HPI narrative: Patient comes to the emergency room complaining of a fall. Patient states that he believes that his poison him, which made him feel weak. Patient admits that he likes to drinking rum and Coke at bedtime. Patient denies any flank pain. Patient states that earlier today he fell, bumped his left lower back on the wants let down. Patient states that he did not hit his head and did not lose consciousness. Patient is on Eliquis. Patient states that this time he feels much better, no significant pain in his back or ribs. No headache, no neck pain. Related Data Home Medications Medication Instructions Recorded Confirmed mecobalamin (vitamin B12) 5,000 5,000 mcg PO DAILY 01/31/21 01/22/23 mcg lozenge Previous Rx's Medication Instructions Recorded apixaban 5 mg tablet (Eliquis) 5 mg PO BID 90 days #180 tabs 02/03/21 cefuroxime axetil 250 mg tablet 250 mg PO BID #19 tabs 05/18/23 Allergies Allergy/AdvReac Type Severity Reaction Status Date / Time No Known Allergies Allergy Verified 05/17/23 17:05 Review of Systems 2 Review of Systems: Constitutional : No Weight loss, No Fever, No Chills, No Night Sweats, No Fatigue, No Malaise ENT/Mouth : No Hearing loss, No Ear Pain, No Nasal Congestion, No Sinus Pain, No Hoarseness, No sore throat, No Rhinorrhea, No Swallowing Difficulty Eyes: No Eye Pain, No Swelling, No Redness, No Foreign Body, No Discharge, No Vision Changes Cardiovascular : No Chest Pain, No SOB, No Dyspnea on Exertion, No Orthopnea, No Edema, No Palpitations Respiratory : No Cough, No Sputum, No Wheezing, No Smoke Exposure, No Dyspnea Gastrointestinal : No Nausea, No Vomiting, No Diarrhea, No Constipation, No abdominal Pain, No Hematochezia, No Melena Genitourinary : no irregular bleeding, No Dysuria, No Urinary Frequency, No Hematuria, No Urinary Incontinence, No Urgency, No Flank Pain, No Urinary Flow Changes, No Hesitancy Musculoskeletal : Complaining of mild back pain on the left, no joint pain, No Myalgias, No Joint Swelling Skin : No Skin Lesions, No rash Neuro : No Weakness, No Numbness, No Paresthesias, No Loss of Consciousness, No Dizziness, No Headache, denies head strike Psych : No Anxiety/Panic, No Depression, No SI/HI/AH/VH, No Social Issues, Heme/Lymph: No Bruising, No Bleeding,No Lymphadenopathy Endocrine : No Polyuria, No Polydipsia, No Temperature Intolerance [facility], [facility] Past Medical History Surgical History History of knee replacement Hx of appendectomy History of adenoidectomy History of tonsillectomy Family History Family History Father No problems noted. Mother No problems noted. Social History Social History Alcohol intake: current Alcohol intake frequency: 0-2 drinks per day Patient Tobacco Use Status: Former Tobacco user Quit Date: 1971 Smoked: 10 +/- Physical Exam ED Vital Signs: Vital Signs - 24 hr 05/17/23 17:05 05/17/23 22:12 Temperature 98.3 F 99.1 F Pulse Rate 84 87 Respiratory Rate 16 17 Blood Pressure 166/104 H 130/97 H Pulse Oximetry 96 97 Oxygen Delivery Method Room Air Room Air BMI result Body Mass Index 23.7 Const Other: Appearance: Alert. Oriented X3. No acute distress. Well-appearing Eyes: Pupils equal, round and reactive to light. ENT: Pharynx normal. Neck: Normal inspection. Neck supple. No lymph nodes noted. No crepitus CVS: Normal heart rate and rhythm. Pulses normal. Normal S1 and S2 Respiratory: No respiratory distress. Breath sounds normal. No Wheezing. No rales Abdomen: Soft and nontender. No rigidity. No distention. Skin: Skin warm and dry. Normal skin color. Normal skin turgor. Extremities: No lower extremity edema. No Lacerations. No Rash Neuro: Oriented X 3. No motor deficit. No sensory deficit. Moving all extremities. No slurred speech. CN 2 through 12 grossly intact Psych: calm, cooperative, normal affect Course Course Course Narrative: RME:?83 yo male here requesting urine test as he believes someone poisoned him last night. admits to drinking a rum and coke last night while at home and approximately 1 hour later felt his legs give out from under him. he fell to the left against his bed and was able to stand back up. denies head strike or LOC. On eliquis. he states that he lives at home with his . when asked if he believes his poisoned him, he states well I don't know who else it would be . He denies any arguments or altercations with his . admits to consuming 1-2 rum and cokes/ night. denies illicit substance use. labs, UA, UDS ordered Full HPI, ROS and PE to be performed by the primary ED provider. Medical Decision Making Medical Decision Making [facility] Narrative: -patient is awake, alert and oriented x3, good steady gait. -discussed with the patient that he has a urinary tract infection. Patient was given the 1st dose of antibiotics, p.o. cefuroxime in the emergency room. Patient states that he feels well and steady go home. Differential Diagnosis Differential Diagnoses: The differential diagnosis associated with the presentation includes (UTI, mechanical fall, generalized weakness, viral syndrome) Lab Data [facility] Lab Attestation statement: I reviewed the patient's lab results. 05/17/23 17:58 05/17/23 17:58 Labs: Lab Results 05/17/23 Range/Units 17:58 WBC 12.3 H (4.8-10.8) X10*3/uL RBC 4.91 (4.60-5.80) X10*6/uL Hgb 17.1 (14.0-18.0) g/dl Hct 48.8 (42.0-52.0) % MCV 99.4 H (80.0-98.0) fL MCH 34.8 H (27.0-33.0) pg MCHC 35.0 (31.0-36.0) g/dl RDW 12.7 (11.0-16.0) % Plt Count 172 D (160-400) X10*3/uL MPV 9.2 L (9.4-12.4) fL Immature Gran % (Auto) 0.3 (0.0-0.4) % Neut % (Auto) 85.3 H (45-73) % Lymph % (Auto) 8.7 L (20-40) % Cook % (Auto) 5.3 (2-11) % Eos % (Auto) 0.1 (0-4) % Baso % (Auto) 0.3 (0-2) % Lymph # (Auto) 1.1 L (1.2-4.9) X10*3/uL Cook # (Auto) 0.7 (0.1-1.2) X10*3/uL Eos # (Auto) 0.0 (0.0-0.4) X10*3/uL Baso # (Auto) 0.0 (0.0-0.2) X10*3/uL Abs Immat Gran (auto) 0.04 H (0.00-0.03) X10*3/uL Absolute Neuts (auto) 10.5 H (2.0-8.3) x10*3/uL Absolute Nucleated RBC 0.000 (0.0-0.012) X10*3/uL Nucleated RBC % (auto) 0.0 (0.0-0.2) /100WBC Sodium 138 (135-145) mmol/L Potassium 3.6 (3.3-5.1) mmol/L Chloride 101 (96-108) mmol/L Carbon Dioxide 25 (22-29) mmol/L Anion Gap 16 (12-20) BUN 15 (9-16) mg/dL Creatinine 0.87 (0.5-1.4) mg/dL Estim Creat Clear Calc 68.1 Estimated GFR > 60 Random Glucose 106 (60-115) mg/dL Calcium 9.7 (8.4-10.2) mg/dL Total Bilirubin 2.0 H (0.0-1.0) mg/dL AST 27 (5-37) U/L ALT 19 (0-40) U/L Alkaline Phosphatase 66 (39-117) U/L Total Protein 7.6 (6.5-8.0) g/dL Albumin 4.5 (3.5-5.0) g/dL Urine Color DK YELLOW Urine Appearance Cloudy Urine pH 6.0 (5.0-9.0) Ur Specific [place] 1.025 (1.005-1.025) Urine Protein 30 (1+) H (Neg-Trace) mg/dL Urine Glucose (UA) Negative (Negative) mg/dL Urine Ketones 15 (Negative) mg/dL Urine Blood Moderate (2+) H (Negative) Urine Nitrite Positive H (Negative) Ur Leukocyte Esterase Moderate (2+) H (Negative) Urine RBC 3-5 H (0-2) /HPF Urine WBC >50 H (0-5) /HPF Ur Squamous Epith Cells 0-2 (0-2) /HPF Urine Bacteria 4+ (None Seen) Hyaline Casts 0-2 (0-2) /LPF Salicylates < 5.0 L (15-30) mg/dL Urine Opiates Screen Not Detected (Not Detect) Urine Fentanyl Screen Not Detected (Not Detect) Ur Barbiturates Screen Not Detected (Not Detect) Ur Phencyclidine Scrn Not Detected (Not Detect) Ur Amphetamines Screen Not Detected (Not Detect) U Benzodiazepines Scrn Not Detected (Not Detect) Urine Cocaine Screen Not Detected (Not Detect) U Marijuana (THC) Screen Not Detected (Not Detect) Ethyl Alcohol < 10 mg/dL Discharge Plan Discharge Clinical Impression: Urinary tract infection Patient Disposition: Home, Self-Care Instructions: Urinary Tract Infection in Men (ED) Additional Instructions: Please follow-up with your primary care physician tomorrow. If you have any worsening or new symptoms, please return to the emergency room or call 911 Prescriptions: New cefuroxime axetil 250 mg tablet 250 mg PO BID Qty: 19 0RF No Action Eliquis 5 mg tablet 5 mg PO BID 90 Days Qty: 180 3RF mecobalamin (vitamin B12) 5,000 mcg lozenge 5,000 mcg PO DAILY Rx Instructions: allow to dissolve in mouth OR may chew lightly before swallowing
[2023-05-17 18:04] LABS: MANUAL DIFF FLAG NO
[2023-05-17 18:06] LABS: Basophils Percent Auto 0.3 % (0-2); Eosinophils Percent Auto 0.1 % (0-4); Hematocrit 48.8 % (42.0-52.0); Hemoglobin 17.1 g/dl (14.0-18.0); Imm Gran Abs Auto 0.04 X10*3/uL (0.00-0.03); Imm Gran Pct Auto 0.3 % (0.0-0.4); Lymphocytes Absolute Auto 1.1 X10*3/uL (1.2-4.9); Lymphocytes Percent Auto 8.7 % (20-40); Mean Corpuscular Hemoglobin 34.8 pg (27.0-33.0); Mean Corpuscular Volume 99.4 fL (80.0-98.0); Mean Platelet Volume 9.2 fL (9.4-12.4); Monocytes Absolute Auto 0.7 X10*3/uL (0.1-1.2); Monocytes Percent Auto 5.3 % (2-11); Neutrophils Absolute Auto 10.5 x10*3/uL (2.0-8.3); Neutrophils Percent Auto 85.3 % (45-73); Platelet Count 172 X10*3/uL (160-400); Red Blood Count 4.91 X10*6/uL (4.60-5.80); Red Cell Distribution Width 12.7 % (11.0-16.0); White Blood Count 12.3 X10*3/uL (4.8-10.8)
[2023-05-17 18:10] LABS: Appearance Urine Cloudy; Color Urine DK YELLOW; Glucose Urine UA Negative (Negative); Leukocyte Esterase Urine Moderate (2+) (Negative); Nitrite Urine Positive (Negative); Specific Gravity - Urine 1.025 (1.005-1.025); UMIC TRIGGER UACC YES; Urine Blood Moderate (2+) (Negative); Urine Ketones 15 mg/dL (Negative); Urine Protein 30 (1+) mg/dL (Neg-Trace)
[2023-05-17 18:19] LABS: Amphetamine Screen Urine Not Detected (Not Detect); Barbiturates, Urine Not Detected (Not Detect); Benzodiazepines Screen Urine Not Detected (Not Detect); Cannabinoid Screen Urine Not Detected (Not Detect); Cocaine Screen Urine Not Detected (Not Detect); Fentanyl, urine Not Detected (Not Detect); Opiate Screen Urine Not Detected (Not Detect); Phencyclidine Screen Urine Not Detected (Not Detect)
[2023-05-17 18:26] LABS: Alanine Aminotransferase 19 U/L (0-40); Albumin Level 4.5 g/dL (3.5-5.0); Alkaline Phosphatase 66 U/L (39-117); Anion Gap 16 (12-20); Aspartate Amino Transferase 27 U/L (5-37); Blood Urea Nitrogen 15 mg/dL (9-16); Calcium 9.7 mg/dL (8.4-10.2); Carbon Dioxide 25 mmol/L (22-29); Chloride 101 mmol/L (96-108); Creatinine Clr Calc Pharmacy 68.1; Estimated Glomerular Filt Rate > 60; Ethanol < 10 mg/dL; Glucose Random 106 mg/dL (60-115); Potassium 3.6 mmol/L (3.3-5.1); Salicylate < 5.0 mg/dL (15-30); Sodium 138 mmol/L (135-145); Total Protein 7.6 g/dL (6.5-8.0)
[2023-05-17 19:17] LABS: Bacteria Urine 4+ (None Seen); Hyaline Casts Urine 0-2 /LPF (0-2); Squamous Epithelial Cell Urine 0-2 /HPF (0-2); UACC Culture Trigger YES; WBC Urine >50 /HPF (0-5)
[2023-05-17 22:12] VITALS: BP 130/97; PULSE 87; RESP 17; TEMP 37.3; O2SAT 97
[2023-05-18 02:30] VITALS: BP 137/77; PULSE 77; RESP 16; TEMP 36.6
[2023-05-18] MEDS: cefuroxime axetiL 250 MG TABLET PO (02:47)
== END 2023-05-18 02:30 | disposition home or self-care (01) ==
PROVIDERS: Physician Assistant Medical; Emergency Provider Emergency Medicine; PCP Internal Medicine
DX: N39.0 Urinary tract infection, site not specified (principal); M79.7 Fibromyalgia; Z51.81 Encounter for therapeutic drug level monitoring; Z79.899 Other long term (current) drug therapy
CPT/HCPCS: 36415; 80053; 80179; 80307; 81001; 85025; 87086; 87186; 99282; 99283

== ENCOUNTER 2024-01-28 08:59 | Outpatient (AMB) | payer MEDICARE, SELFPAY ==
--- NOTE | 2024-01-28 09:01 | A.OFFVIS_ITS ---
Vital Signs 01/28/24 09:02 Height 6 ft Weight 174 lb 2.643 oz BMI 23.6 BP 120/70 Blood Pressure Location Lt brachial Position Sitting Pulse 63 Pulse Source Monitor Intake Visit Reasons: 1 yr f/up Intake Note: 1 yr f/up Cotton Ball Bagger Required: No Accompanied by: Self / Same As Patient Allergies No Known Allergies Allergy (Verified 05/17/23 17:05) Medication List - Last Reconciled 01/28/24 by Jameel Burdick MD apixaban (Eliquis) 5 mg PO BID 90 days mecobalamin (vitamin B12) 5,000 mcg PO DAILY HPI Comments Details: Pleasant 83-year-old gentleman here for follow-up. He is known to have atrial flutter in the past. He has been asymptomatic. Normal ejection fraction on echocardiography. No heart failure symptoms. He has been on Eliquis without any problems. He returns and has been doing well. No new symptoms. No bleeding issues. 01/22/2023: He returns for follow-up. He has been active and has no symptoms. Continues to take Eliquis without any bleeding issues. Blood pressure control is good. 01/28/2024: He is here for f/u. Continues to be asymptomatic. He has been active physically and has no exertional issues. No bleeding concerns with Eliquis. ECG is showing sinus rhythm with premature atrial complexes. [facility] Surgical History History of knee replacement Hx of appendectomy History of adenoidectomy History of tonsillectomy Family History Father No problems noted. Mother No problems noted. Social History Alcohol intake: current Alcohol intake frequency: 0-2 drinks per day Patient Tobacco Use Status: Former Tobacco user Years Smoked: 10 +/- Review of Systems Const Denies chills, Denies fatigue, Denies fever(s), Denies frequent falls, Denies weakness, Denies weight gain and Denies weight loss ENT Denies dizziness Card Denies chest pain, Denies leg edema, Denies lightheadedness, Denies palpitations, Denies dyspnea and Denies dyspnea on exertion Resp Denies cough, Denies dyspnea and Denies dyspnea on exertion GI Denies hematochezia Musc Denies abnormal gait, Denies muscle weakness, Denies numbness, Denies radiating pain into limb and Denies tingling Neuro Denies abnormal gait, Denies dizziness, Denies frequent falls, Denies numbness, Denies tingling and Denies weakness Endo Denies fatigue and Denies palpitations Physical Exam Vital Signs: Last Vital Signs Pulse 63 01/28/24 09:02 BP 120/70 01/28/24 09:02 BMI result Body Mass Index 23.6 GENERAL APPEARANCE: in no acute distress, well developed, well nourished. NECK/THYROID: no carotid bruit, no jugular venous distention. SKIN: no suspicious lesions, warm and dry. HEART: no murmurs, regular rhythm, S1, S2 normal. LUNGS: clear to auscultation bilaterally. ABDOMEN: normal, bowel sounds present, soft, nontender, nondistended. EXTREMITIES: no clubbing, cyanosis, or edema. Bruising right ankle. PERIPHERAL PULSES: equal. NEUROLOGIC: nonfocal, alert and oriented. Office Procedures EKG Details: Sinus rhythm with first-degree AV block with premature atrial and ventricular complexes. Heart rate 63 beats per minute, leftward axis, incomplete right bundle-branch block, poor R-wave progression, QTC 425 milliseconds. [id number], Complete Assessment & Plan Assessment & Plan (1) Atrial flutter: Code(s): I48.92 - Unspecified atrial flutter Category: Medical Plan Pleasant 83 year gentleman who is here for follow-up. He has background history of atrial flutter. Chads Vasc score is 2. He has been on Eliquis long-term and has been tolerating it well. No bleeding issues. He is active during summertime in his garden and gets some cuts but no GI/ bleeding or epistaxis. We previously discussed about Watchman and he was referred to [facility] but his chads Vasc was 2 and it was felt that he can be treated with Eliquis rather than Watchman. 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 Thank you for allowing me to participate in the care of your patient. Please feel free to contact me if you have any questions. Coding Level of Care Code Est Pt Level 3 (46051) Diagnoses Atrial flutter I48.92 CPT Codes EKG - CPT: 07513-[id number], Complete ([id number])
[2024-01-28 09:02] VITALS: BP 120/70; PULSE 63; BMI 23.6
== END 2024-01-28 09:23 | disposition home or self-care (01) ==
PROVIDERS: PCP Internal Medicine; Visit Provider Internal Medicine Cardiovascular Disease
DX: I48.92 Unspecified atrial flutter (principal)
CPT/HCPCS: 93010; 99213

== ENCOUNTER → 2024-01-28 08:59 | Outpatient (BNVA) | payer MEDICARE, SELFPAY | PROVIDERS: PCP Internal Medicine; Visit Provider Internal Medicine Cardiovascular Disease | DX: I48.92 Unspecified atrial flutter (principal); R94.31 Abnormal electrocardiogram [ECG] [EKG]; I45.19 Other right bundle-branch block; I44.0 Atrioventricular block, first degree | CPT/HCPCS: 93005; 99212 ==

== ENCOUNTER 2024-06-25 14:26 | Emergency (ER) | payer OTHER, SELFPAY ==
--- NOTE | ~2024-06-25 | XR_ITS ---
CLINICAL HISTORY: pain, injury 3 view left foot Comparison: None Findings: No fractures or dislocations. Nonstandard position to evaluate the Lisfranc joint. Degenerative changes of the 1st metatarsophalangeal joint and midfoot with osteophytes. No ankle effusion. No radiopaque foreign body. There is soft tissue edema of the foot. IMPRESSION: No evidence of acute fracture. This document has been electronically signed by: César Garcia MD on 06/25/2024 18:12:06
--- NOTE | ~2024-06-25 | US_ITS ---
EXAMINATION: US TRIPLEX LOWER EXTREMITY, LEFT CLINICAL INFORMATION: Left lower extremity swelling and erythema. COMPARISON: None available. TECHNIQUE: Color-flow triplex imaging with spectral analysis and compression Doppler were performed on the left lower extremity. FINDINGS: Respiratory variation, normal compression and augmented flow are noted throughout the left lower extremity. The visualized common femoral vein, superficial femoral vein, profunda femoral vein, popliteal vein and midcalf peroneal and posterior tibial venous segments show no evidence of deep venous thrombosis. There is no Chadwick's cyst. There is diffuse calf edema in the mid and distal calf. US/US venous duplex LE IMPRESSION: No evidence of deep venous thrombosis involving the left lower extremity. Electronically signed by: Donald Logan MD 06/25/2024 03:33 PM EDT
[2024-06-25 14:36] VITALS: BP 154/74; PULSE 55; RESP 18; TEMP 36.2; O2SAT 96; BMI 23.5
--- NOTE | 2024-06-25 14:36 | ED_ITS ---
HPI - Extremity Injury (Lower) General Chief Complaint: General Medical Stated Complaint: L Lower Leg Swelling x 2 Wks Time Seen by Provider: 06/25/24 17:10 Source: patient Mode of arrival: ambulatory Limitations: no limitations History of Present Illness ED Provider: Ashly Plata PA-C HPI Narrative: Patient is an 84 year old assigned male at with a history of atrial flutter - on Eliquis presenting to the emergency department today with left lower leg swelling. Patient states that over the last month he has had lower left leg swelling and over the last week he has noticed bruising to his left foot / heel. Patient denies any dizziness, lightheadedness, abdominal pain, nausea, vomiting, fever, chills, blurry vision, double vision, loss of vision, chest pain, difficulty breathing, shortness of breath, back pain, night sweats, pain with urination, increased urinary frequency, increased urinary urgency, blood in his urine or stool, syncope or a near syncopal episode, recent trauma or falls, bowel incontinence, bladder incontinence, or any other complaints at this time. Related Data Home Medications ?Medication ?Instructions ?Recorded ?Confirmed mecobalamin (vitamin B12) 5,000 5,000 mcg PO DAILY 01/31/21 01/28/24 mcg lozenge Previous Rx's ?Medication ?Instructions ?Recorded apixaban 5 mg tablet (Eliquis) 5 mg PO BID 90 days #180 tabs 02/03/21 Allergies Allergy/AdvReac Type Severity Reaction Status Date / Time No Known Allergies Allergy Verified 06/25/24 14:37 Review of Systems 2 Constitutional: Constitutional: Reports no additional constitutional complaints, Denies chills, Denies fever(s) and Denies night sweats Eyes: Eyes: Reports no additional eye complaints, Denies blurry vision, Denies change in vision, Denies diplopia, Denies eye discharge, Denies loss of vision and Denies eye pain ENT: Denies dizziness Cardiovascular: Cardiovascular: Reports no additional cardiovascular complaints, Denies chest pain, Denies lightheadedness, Denies Loss of Consciousness and Denies dyspnea Respiratory: Respiratory: Reports no additional respiratory complaints and Denies dyspnea Gastrointestinal: Gastrointestinal: Reports no additional gastrointestinal complaints, Denies abdominal pain, Denies melena, Denies hematochezia, Denies change in bowel habits and Denies change in stool character Genitourinary: Genitourinary: Reports no additional male genitourinary complaints, Denies hematuria, Denies oliguria, Denies difficulty urinating, Denies dysuria, Denies urinary frequency, Denies urinary hesitancy, Denies urinary incontinence and Denies urinary urgency Musculoskeletal: Musculoskeletal: Reports no additional musculoskeletal complaints, Denies numbness and Denies tingling Comments: left lower leg swelling left foot bruising / pain Neurologic: Denies dizziness, Denies loss of vision, Denies numbness and Denies tingling Psychiatric: Psychiatric: Reports no additional psychiatric complaints Endocrine: Endocrine: Reports no additional endocrine complaints Hematologic/Lymphatic: Hematologic/Lymphatic: Reports no additional hematologic/lymphatic complaints Allergic/Immunologic: Allergic/Immunologic: Reports no additional allergic/immunologic complaints PMFSH Past Medical History Attestation statement: The following information was validated with the patient. Source: old records reviewed and nursing notes reviewed Surgical History History of knee replacement Hx of appendectomy History of adenoidectomy History of tonsillectomy Family History Family History Father No problems noted. Mother No problems noted. Social History Social History Alcohol intake: current Alcohol intake frequency: 0-2 drinks per day Patient Tobacco Use Status: Former Tobacco user Years Smoked: 10 +/- Advance Directives: No Advance Directives Information Provided: Yes Physical Exam 2 Vital Signs: Vital Signs: Last Vital Signs Temp 98.4 F 06/25/24 18:27 Pulse 66 06/25/24 18:27 Resp 18 06/25/24 18:27 BP 166/87 H 06/25/24 18:27 Pulse Ox 98 06/25/24 18:27 O2 Del Method Room Air 06/25/24 18:27 BMI result Body Mass Index 23.5 Const: General: cooperative, no acute distress, alert and awake Nutritional Appearance: well nourished Orientation/consciousness: patient oriented x3 HEENT: Head: Yes normal to inspection and Yes atraumatic Ears: hearing grossly normal bilaterally and external ears normal General nose exam: Normal external nose present, no nasal discharge noted and no epistaxis Face and sinus: Yes normal facial exam, No abrasion and No laceration Mouth: Normal oral and palatal mucosa present, no drooling and no muffled voice Eyes: General: appearance normal, both eyes and all related structures P eriorbital: periorbital findings normal Eyelids: Yes eyelids normal C onjunctivae: conjunctivae normal Pupils: Equal, round and reactive pupils present EOM: EOMs intact bilaterally Neck: Neck: Yes normal visual inspection, Yes full ROM and Yes no lymphadenopathy Resp: Effort & Inspection: normal respiratory effort and able to speak in complete sentences Neuro: General: patient oriented x3, moves all extremities and CN's II-XI intact bilaterally Cranial nerves: Yes Equal, round and reactive pupils present Cognition (Neuro): normal cognition Extrem: Other: left lower leg swelling bruising present to the medial aspect of the left heel General: Yes full ROM and Yes capillary refill normal Psych: Appearance: grossly normal Mental Status: mental status grossly normal Affect: normal affect Attitude: cooperative Thought process: N ormal thought process present Thought content: Normal thought content present Insight: Good insight present (Psych) Course Course Course Narrative: This is a Rapid Medical Exam performed in triage by Lurdes Rodriguez PA-C. Full HPI, ROS and PE to be performed by primary ED provider. 84 yo M w/pmhx A.flutter on Eliquis, presenting to the ED c/o LLE pain x today with swelling x few weeks. [facility] denies SOB, CP PE: +LLE pitting edema, faint erythema, no warmth, NV intact distally Plan: labs, US Medical Decision Making Medical Decision Making MDM Narrative: Patient is an 84 year old assigned male at with a history of atrial flutter - on Eliquis presenting to the emergency department today with left lower leg swelling. Patient's physical exam was as noted in the physical exam portion of this note. Patient's blood work was unremarkable. Patient's LLE US showed no acute process. Patient's left foot x-ray showed no acute billie process. Patient's clinical presentation is most consistent with a slow healing contusion and left lower leg edema. I explained my physical exam findings as well as all test results to the patient. I answered all questions asked by the patient. I applied a compression dressing to the left lower leg, per procedure note, without incident. I stressed the importance of the patient taking his medication as directed (either prescribed or as the over the counter packaging recommends). I stressed the importance of the patient following up with his primary care provider. I stressed the importance of the patient returning to the emergency department immediately if his symptoms were to worsen or if he were to develop any dizziness, shortness of breath, difficulty breathing, chest pain, blurry vision, loss of vision, nausea, vomiting, abdominal pain, fever, chills, back pain, or any other complaints. Patient verbalized agreement and understanding with this treatment plan and discharge. Differential Diagnosis Differential Diagnoses: The differential diagnosis associated with the presentation includes Left lower leg edema Left foot contusion Left heel contusion Admission/Observation Consideration of admission/observation: Escalation of care including admission/observation considered Patient would have been admitted to the hospital had his work up had any findings where hospital admission was appropriate and his clinical presentation warranted hospital admission. Lab Data [facility] Lab Attestation statement: I reviewed the patient's lab results. My interpretation of these results are in the [facility] Rationale portion of this note. 06/25/24 15:28 06/25/24 15:28 Labs: Lab Results 06/25/24 Range/Units 15:28 WBC 4.8 (4.8-10.8) X10*3/uL RBC 4.13 L (4.60-5.80) X10*6/uL Hgb 14.4 (14.0-18.0) g/dl Hct 40.7 L (42.0-52.0) % MCV 98.5 H (80.0-98.0) fL MCH 34.9 H (27.0-33.0) pg MCHC 35.4 (31.0-36.0) g/dl RDW 12.3 (11.0-16.0) % Plt Count 195 (160-400) X10*3/uL MPV 9.0 L (9.4-12.4) fL Immature Gran % (Auto) 0.2 (0.0-0.4) % Neut % (Auto) 62.2 (45-73) % Lymph % (Auto) 25.3 (20-40) % Yates % (Auto) 10.9 (2-11) % Eos % (Auto) 0.8 (0-4) % Baso % (Auto) 0.6 (0-2) % Lymph # (Auto) 1.2 (1.2-4.9) X10*3/uL Yates # (Auto) 0.5 (0.1-1.2) X10*3/uL Eos # (Auto) 0.0 (0.0-0.4) X10*3/uL Baso # (Auto) 0.0 (0.0-0.2) X10*3/uL Abs Immat Gran (auto) 0.01 (0.00-0.03) X10*3/uL Absolute Neuts (auto) 3.0 (2.0-8.3) x10*3/uL Absolute Nucleated RBC 0.000 (0.0-0.012) X10*3/uL Nucleated RBC % (auto) 0.0 (0.0-0.2) /100WBC Sodium 143 (135-145) mmol/L Potassium 4.3 (3.3-5.1) mmol/L Chloride 110 H (96-108) mmol/L Carbon Dioxide 25 (22-29) mmol/L Anion Gap 12 (12-20) BUN 13 (9-16) mg/dL Creatinine 0.74 (0.5-1.4) mg/dL Estim Creat Clear Calc 78.6 Estimated GFR > 60 Random Glucose 94 (60-115) mg/dL Calcium 9.0 D (8.4-10.2) mg/dL Total Bilirubin 0.9 (0.0-1.0) mg/dL Direct Bilirubin 0.3 (0.0-0.5) mg/dL AST 35 (5-37) U/L ALT 17 (0-40) U/L Alkaline Phosphatase 64 (39-117) U/L B-Natriuretic Peptide 80 (<100) pg/mL Total Protein 6.4 L (6.5-8.0) g/dL Albumin 4.1 (3.5-5.0) g/dL Independent Interpretation I performed an independent interpretation of an: Plain X-Ray and Ultrasound Interpretation: My interpretation is in agreement with the radiologist's impression of these imaging studies. L CLINICAL HISTORY: pain, injury 3 view left foot Comparison: None Findings: No fractures or dislocations. Nonstandard position to evaluate the Lisfranc joint. Degenerative changes of the 1st metatarsophalangeal joint and midfoot with osteophytes. No ankle effusion. No radiopaque foreign body. There is soft tissue edema of the foot. IMPRESSION: No evidence of acute fracture. This document has been electronically signed by: César Garcia MD on 06/25/2024 18:12:06 Dictated By: César Garcia MD Signed By: Electronically signed by César Garcia MD 06/25/24 1813 EXAMINATION: US TRIPLEX LOWER EXTREMITY, LEFT CLINICAL INFORMATION: Left lower extremity swelling and erythema. COMPARISON: None available. TECHNIQUE: Color-flow triplex imaging with spectral analysis and compression Doppler were performed on the left lower extremity. FINDINGS: Respiratory variation, normal compression and augmented flow are noted throughout the left lower extremity. The visualized common femoral vein, superficial femoral vein, profunda femoral vein, popliteal vein and midcalf peroneal and posterior tibial venous segments show no evidence of deep venous thrombosis. There is no Chadwick's cyst. There is diffuse calf edema in the mid and distal calf. US/US venous duplex LE LT IMPRESSION: No evidence of deep venous thrombosis involving the left lower extremity. Electronically signed by: Donald Logan MD 06/25/2024 03:33 PM EDT Dictated By: Donald Logan MD Signed By: Electronically signed by Donald Logan MD 06/25/24 1533 Radiology Impression Discussion of test interpretation with radiology: I have reviewed the radiologist's reading. Procedures Procedure Narrative Procedure Narrative: Compression dressing applied to the left lower leg without incident. Patient's left lower extremity PMS was present prior to and after compression dressing application. Discharge Plan Discharge Clinical Impression: Contusion, Edema Patient Disposition: Home, Self-Care Instructions: Contusion in Adults (ED), Leg Edema (ED) Additional Instructions: Your ultrasound showed no evidence of a blood clot. Your foot x-ray showed no evidence of a fracture (break). Your lab work was unremarkable. Your presentation is most consistent with a contusion (bruise) to the left medial (inner) foot / heel that is delayed in healing secondary to your Eliquis use as well as dependent (gravity aided) edema (swelling) of the left lower extremity (leg). Every time you are stationary - you must elevate your left lower leg. You may remove the compression dressing to shower. If at any point you have a change in sensation, movement, or color of your left foot / toes - loosen the dressing / JEANNE wrap immediately. This may mean you having to loosen it to the point of removal - that is OK. If you find that the sensation, movement, and color does not normalize - call 911 or proceed to your closest emergency department, i mmediately. Follow up with your primary care provider. Return to the emergency department immediately if your symptoms worsen or if you develop any numbness, tingling, dizziness, shortness of breath, difficulty breathing, chest pain, blurry vision, loss of vision, nausea, vomiting, abdominal pain, fever, chills, back pain, or any other complaints. Please see the information below about our Patient Portal. If you are not yet enrolled in the [facility] Patient Portal, you will receive an enrollment email invitation following your visit to any [facility] care setting. You may also self-enroll in the Patient Portal by visiting our website: [email or web address] The following information is required to access the Patient Portal: - Your [facility] Medical Record Number - Your personal home email address (must match what is in your electronic medical record, Registration staff can assist with this) - Name - Date of Capabilities of the Patient Portal: - Message some providers - View upcoming appointments - Access your health summary, medical history, and visit history - View current conditions and allergies - View procedure and lab results - View your medications, including guidelines, side effects, and precautions - Complete pre-appointment questionnaires requested by your provider - Ready summary reports of your office visits and procedures To access the Patient Portal Mobile Hamlet, follow these directions: - Search [employer] in the Hamlet Store or Google SETiT Store - Download the Hamlet - Search for [facility] - Enter your login/password Prescriptions: No Action Eliquis 5 mg tablet 5 mg PO BID 90 Days Qty: 180 3RF mecobalamin (vitamin B12) 5,000 mcg lozenge 5,000 mcg PO DAILY Rx Instructions: allow to dissolve in mouth OR may chew lightly before swallowing Referrals: [facility] [Provider Group] (Call to establish and follow up with a primary care provider. If you already have a primary care provider, please follow up with them.) [facility] [Provider Group] (Call to establish and follow up with a primary care provider. If you already have a primary care provider, please follow up with them.) [facility] [Provider Group] (Call to establish and follow up with a primary care provider. If you already have a primary care provider, please follow up with them.) [facility] [place]Provider Group] (Call to establish and follow up with a primary care provider. If you already have a primary care provider, please follow up with them.) [facility] [Provider [facility]] (Call to establish and follow up with a primary care provider. If you already have a primary care provider, please follow up with them.) Interventions: ED Discharge Assessment Last Done: 06/25/24 18:27 Discharge Date/Time: 06/25/24 18:28 Print Language: Cook Islander
[2024-06-25 15:33] LABS: MANUAL DIFF FLAG NO
[2024-06-25 15:38] LABS: Basophils Percent Auto 0.6 % (0-2); Eosinophils Percent Auto 0.8 % (0-4); Hematocrit 40.7 % (42.0-52.0); Hemoglobin 14.4 g/dl (14.0-18.0); Imm Gran Abs Auto 0.01 X10*3/uL (0.00-0.03); Imm Gran Pct Auto 0.2 % (0.0-0.4); Lymphocytes Absolute Auto 1.2 X10*3/uL (1.2-4.9); Lymphocytes Percent Auto 25.3 % (20-40); Mean Corpuscular HGB Conc 35.4 g/dl (31.0-36.0); Mean Corpuscular Hemoglobin 34.9 pg (27.0-33.0); Mean Corpuscular Volume 98.5 fL (80.0-98.0); Monocytes Absolute Auto 0.5 X10*3/uL (0.1-1.2); Monocytes Percent Auto 10.9 % (2-11); Neutrophils Percent Auto 62.2 % (45-73); Platelet Count 195 X10*3/uL (160-400); Red Blood Count 4.13 X10*6/uL (4.60-5.80); Red Cell Distribution Width 12.3 % (11.0-16.0); White Blood Count 4.8 X10*3/uL (4.8-10.8)
[2024-06-25 15:55] LABS: Alanine Aminotransferase 17 U/L (0-40); Albumin Level 4.1 g/dL (3.5-5.0); Anion Gap 12 (12-20); Aspartate Amino Transferase 35 U/L (5-37); Bilirubin Direct 0.3 mg/dL (0.0-0.5); Bilirubin Total 0.9 mg/dL (0.0-1.0); Blood Urea Nitrogen 13 mg/dL (9-16); Carbon Dioxide 25 mmol/L (22-29); Chloride 110 mmol/L (96-108); Creatinine Clr Calc Pharmacy 78.6; Estimated Glomerular Filt Rate > 60; Glucose Random 94 mg/dL (60-115); Potassium 4.3 mmol/L (3.3-5.1); Sodium 143 mmol/L (135-145); Total Protein 6.4 g/dL (6.5-8.0)
[2024-06-25 15:59] LABS: B Type Natriuretic Peptide 80 pg/mL (<100)
[2024-06-25 16:19] LABS: Alkaline Phosphatase 64 U/L (39-117)
[2024-06-25 17:38] VITALS: BP 166/87; PULSE 66; RESP 18; O2SAT 98
[2024-06-25 18:27] VITALS: BP 166/87; PULSE 66; RESP 18; TEMP 36.9; O2SAT 98
== END 2024-06-25 18:28 | disposition home or self-care (01) ==
PROVIDERS: Physician Assistant; Emergency Provider Emergency Medicine
DX: S90.32XA Contusion of left foot, initial encounter (principal); R60.0 Localized edema; I48.92 Unspecified atrial flutter; R06.02 Shortness of breath; M79.672 Pain in left foot; X58.XXXA Exposure to other specified factors, initial encounter; Y93.9 Activity, unspecified; Y92.9 Unspecified place or not applicable; Y99.8 Other external cause status; Z79.01 Long term (current) use of anticoagulants; Z79.899 Other long term (current) drug therapy
CPT/HCPCS: 36415; 73630; 80048; 80076; 83880; 85025; 93971; 99283; 99284

== ENCOUNTER → 2024-06-25 14:37 | Outpatient (BNV) | payer MEDICARE, SELFPAY | PROVIDERS: Visit Provider Radiology Diagnostic Radiology | DX: R22.42 Localized swelling, mass and lump, left lower limb (principal) | CPT/HCPCS: 73630; 93971 ==

== ENCOUNTER 2025-01-28 09:00 | Outpatient (AMB) | payer MEDICARE, SELFPAY ==
--- NOTE | 2025-01-28 09:04 | A.OFFVIS_ITS ---
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 He is known to have atrial flutter in the past. He has been asymptomatic. Normal ejection fraction on echocardiography. No heart failure symptoms. He has been on Eliquis without any problems. He returns and has been doing well. No new symptoms. No bleeding issues. 01/22/2023: He returns for follow-up. He has been active and has no symptoms. Continues to take Eliquis without any bleeding issues. Blood pressure control is good. 01/28/2024: He is here for f/u. Continues to be asymptomatic. He has been active physically and has no exertional issues. No bleeding concerns with Eliquis. ECG is showing sinus rhythm with premature atrial complexes. 01/28/2025: He is here for follow-up. He has been doing well. Continues to be active and has no exertional symptoms. No dizziness or lightheadedness. EKG is showing AV Wenckebach. [facility] Surgical History History of knee replacement Hx of appendectomy History of adenoidectomy History of tonsillectomy Family History Father No problems noted. Mother No problems noted. Social History Alcohol intake: current Alcohol intake frequency: 0-2 drinks per day Patient Tobacco Use Status: Former Tobacco user Years Smoked: 10 +/- Review of Systems Const Denies chills, Denies fatigue, Denies fever(s), Denies frequent falls, Denies weakness, Denies weight gain and Denies weight loss ENT Denies dizziness Card Denies chest pain, Denies leg edema, Denies lightheadedness, Denies palpitations, Denies dyspnea and Denies dyspnea on exertion Resp Denies cough, Denies dyspnea and Denies dyspnea on exertion GI Denies hematochezia Musc Denies abnormal gait, Denies muscle weakness, Denies numbness, Denies radiating pain into limb and Denies tingling Neuro Denies abnormal gait, Denies dizziness, Denies frequent falls, Denies numbness, Denies tingling and Denies weakness Endo Denies fatigue and Denies palpitations Physical Exam Vital Signs: Last Vital Signs Pulse 57 01/28/25 09:07 BP 110/62 01/28/25 09:07 BMI result Body Mass Index 23.5 GENERAL APPEARANCE: in no acute distress, well developed, well nourished. NECK/THYROID: no carotid bruit, no jugular venous distention. SKIN: no suspicious lesions, warm and dry. HEART: no murmurs, regular rhythm, S1, S2 normal. LUNGS: clear to auscultation bilaterally. ABDOMEN: normal, bowel sounds present, soft, nontender, nondistended. EXTREMITIES: no clubbing, cyanosis, or edema. PERIPHERAL PULSES: equal. NEUROLOGIC: nonfocal, alert and oriented. Office Procedures EKG Details: Sinus bradycardia 57 beats per minute, second-degree AV block-Wenckebach, left axis deviation, QTC 399 milliseconds. [id number], Complete Assessment & Plan Assessment & Plan (1) Atrial flutter: Code(s): I48.92 - Unspecified atrial flutter Category: Medical (2) Mobitz type I Wenckebach atrioventricular block: Code(s): I44.1 - Atrioventricular block, second degree Category: Medical Plan Pleasant 85 year gentleman who is here for follow-up. He has background history of atrial flutter. Chads Vasc score is 2. He has been on Eliquis long-term and has been tolerating it well. No bleeding issues. Physically active and has no exertional complaints. EKGs showing AV Wenckebach. This is benign and he is asymptomatic. We will follow up in 1 year. Thank you for allowing me to participate in the care of your patient. Please feel free to contact me if you have any questions. Coding Level of Care Code Est Pt Level 3 (57982) Diagnoses Atrial flutter I48.92 Mobitz type I Wenckebach atrioventricular block I44.1 CPT Codes EKG - CPT: 55504-[id number], Complete ([id number])
[2025-01-28 09:07] VITALS: BP 110/62; PULSE 57; BMI 23.5
== END 2025-01-28 09:26 | disposition home or self-care (01) ==
PROVIDERS: PCP Internal Medicine; Visit Provider Internal Medicine Cardiovascular Disease
DX: I48.92 Unspecified atrial flutter (principal); I44.1 Atrioventricular block, second degree
CPT/HCPCS: 93010; 99213

== ENCOUNTER → 2025-01-28 09:00 | Outpatient (BNVA) | payer OTHER, MEDICARE, SELFPAY | PROVIDERS: PCP Internal Medicine; Visit Provider Internal Medicine Cardiovascular Disease | DX: I44.1 Atrioventricular block, second degree (principal); I48.92 Unspecified atrial flutter; Z79.01 Long term (current) use of anticoagulants | CPT/HCPCS: 93005; 99212 ==